=== PATIENT | male | born 1955 | race Caucasian/White ===

== ENCOUNTER → 2024-09-11 | Outpatient (CLI) | payer MEDICARE, OTHER | END | disposition home or self-care (01) | LOC: RADMRIMAIN 09-04 08:57 | PROVIDERS: ATTEND Urology | DX: Z53.9 Procedure and treatment not carried out, unspecified reason (principal) | CPT/HCPCS: 72197 ==

== ENCOUNTER → 2024-11-21 | Outpatient (CLI) | payer MEDICARE, OTHER ==
--- NOTE | 2024-11-22 09:45 | PE ---
EXAMINATION TYPE: PET CT fusion skull to thigh DATE OF EXAM: 11/21/2024 CLINICAL INDICATION:Male, 69 years old with history of prostate ca; TECHNIQUE: Following the intravenous administration of 5.79 mCi of Ga-68 Illuccix (PSMA), whole bod y images are performed from the skull base to the Mid thigh. Images are reviewed on the computer in the coronal, axial, and sagittal planes. Reconstructed rotating images are created on [employer] and reviewed on the computer. A non-contrast CT is performed in conjunction with the PET scan. CT DLP: 614 mGycm, Automated exposure control for dose reduction was used. COMPARISON: CT None, PET/CT None, MRI: 09/11/2024. FINDINGS: Mediastinal SUV mean is 1.3. Hepatic parenchyma SUV mean is 5.0. SKULL BASE AND NECK: No suspicious radiotracer activity. CHEST, MEDIASTINUM, AND HILAR REGION: No suspicious radiotracer activity. Scarring in the left lung apex max SUV 1.8. ABDOMEN AND PELVIS: Suspicious uptake identified; examples include: Suspicious uptake is seen within the left prostate gland max SUV 37.9. Area of uptake is larger betty red to MRI measuring 3.6 x 2.8 x 2.9 cm There is a linear area of uptake possibly representing a left external iliac lymph node max SUV 2.5. MUSCULOSKELETAL STRUCTURES: No suspicious radiotracer activity. OTHER CT: Atherosclerosis of the carotid bifurcations. Moderate to severe emphysema changes. Left api matt probable scarring present. Right simple renal cortical cyst measuring 43 mm. No follow-up recomme nded. Cholelithiasis. Scattered colonic diverticula. Large right hydrocele. IMPRESSION: Findings compatible with left primary prostate adenocarcinoma. There may be a nonenlarged linear area of uptake and and external iliac lymph node which could represent early metastatic disease. Area of uptake in the prostate gland is larger compared to MRI measuring 3.6 x 2.8 x 2.9 cm [facility], , 11/22/2024 9:42 AM
== END | disposition home or self-care (01) ==
LOC: RADPETMAIN 08:41
PROVIDERS: ATTEND Urology
DX: C61 Malignant neoplasm of prostate (principal)
CPT/HCPCS: 78815; A9596